=== PATIENT | male | born 1940 | race Caucasian/White ===

== ENCOUNTER 2018-07-27 09:11 | Inpatient (IN) ==
[2018-07-27] MEDS ORDERED: CARDIZEM IV ONE (11:21)
[2018-07-27] MEDS ORDERED: LOVENOX SUBQ ONE (11:25)
[2018-07-27] MEDS ORDERED: ELIQUIS PO SCH ×2 (11:30→21:00)
[2018-07-27] MEDS ORDERED: CARDIZEM 125 MG/D5W 125 MG/125 ML IVPB IV SCH (11:30)
--- NOTE | 2018-07-27 11:46 | CARDIOLOGY CONSULTATION ---
DATE: 07/27/2018 REASON FOR CONSULTATION: Patient is admitted with atrial flutter. HISTORY OF PRESENT ILLNESS: The patient is a 78-year-old gentleman with history of hypertension, bronchitis, abnormal EKG with PACs who was seen in the office recently and he was set up for an outpatient stress test and an echocardiogram. In the stress lab he was noted to be in atrial flutter with rapid ventricular rate of 164. The patient does not perceive any palpitations. Does not complain of chest pain. He has chronic shortness of breath from his COPD, however, he has noticed increasing shortness of breath and these are episodic. There is no history of dizziness. There is no leda syncopal episode. REVIEW OF SYSTEMS: A 14-point review of systems was done. GI: There is no history of nausea, vomiting, diarrhea. There is no history of hematemesis or melena. Central nervous system: No focal weakness to suggest a CVA or TIA. Genitourinary: There is no dysuria or hematuria. PAST MEDICAL HISTORY: 1. COPD, bronchitis. 2. Hypertension. 3. Hyperlipidemia. 4. Shortness of breath. HOME MEDICATIONS: 1. ProAir Respiclick inhalers. 2. Advair Diskus. 3. Spironolactone 25. 4. Ambien 10. 5. Aspirin 81 mg a day. 6. Simvastatin 10. 7. Benazepril 40 mg a day. ALLERGIES: He is not known to be allergic to any medication. PHYSICAL EXAMINATION: Vital Signs: Blood pressure was 130/80. Cardiovascular System: First and second heart sounds were heard. Tachycardia was noted. There was no S3 gallop. Respiratory System: Normal air entry. There are no crepitations or rhonchi. Abdomen: Obese, soft, nontender. There was no guarding or rigidity. Bowel sounds were heard. Central nervous system: Alert and was moving all 4 extremities. Extremities: Examination of extremities revealed no pedal edema. HEENT: Atraumatic, normocephalic. Pupils were equal and reacting to light. ASSESSMENT: Mr. Beck Slaughter is a 78-year-old gentleman with history of hypertension, hyperlipidemia, bronchitis chronic obstructive pulmonary disease who was set up to have a stress test and echocardiogram given his episodic shortness of breath. He was noted to be in atrial flutter with rapid ventricular rate. RECOMMENDATIONS: 1. The patient will be admitted. 2. We will get CBC, BMP, thyroid profile done in addition to chest x-ray. 3. We will set him on Lovenox 1 mg/kg subcutaneous twice daily. 4. We will plan for a JEANE cardioversion. We will start him on a Cardizem drip per standard protocol. 5. Hypertension. Given that we are starting him on Cardizem drip, we will hold off on the benazepril for the moment. 6. We will continue with his aspirin. 7. COPD, bronchitis. Continue with his inhalers. cc: Neil López MD
--- NOTE | 2018-07-27 11:59 | Diag Imaging Result Doc PS360 ---
CHEST-PORTABLE - 07/27/2018 INDICATION: dyspnea COMPARISON: 12/28/2017 FINDINGS: The lungs are normally expanded and clear. Heart size and mediastinal contours are normal. No pneumothorax or pleural effusion. IMPRESSION: Negative exam. Electronically signed by Guillermo Kline 07/27/2018 11:57 AM
--- NOTE | 2018-07-27 12:28 | EKG Report ---
Test Performed on : 07/27/2018 12:12:28 PM Test Reason : afib Blood Pressure : / mmHG Vent. Rate : 163 BPM Atrial Rate : 326 BPM P-R Int : 000 ms QRS Dur : 078 ms QT Int : 252 ms P-R-T Axes : 077 019 007 degrees QTc Int : 414 ms Atrial flutter. with 2:1 AV conduction. T wave abnormality, consider inferior ischemia Abnormal ECG No previous ECGs available Confirmed by Fareed HEARN, Anatoly Powell ([id number]) on 07/31/2018 12:41:17 PM
[2018-07-27] MEDS ORDERED: ZOFRAN IV PRN (12:41)
[2018-07-27] MEDS ORDERED: TYLENOL PO PRN (12:41)
[2018-07-27] MEDS ORDERED: XOPENEX NEB INH PRN (12:41)
[2018-07-27] MEDS ORDERED: ATROVENT NEB INH PRN (12:41)
[2018-07-27 13:16] LABS: HEMATOCRIT 48.4 % (42.0-52.0); HEMOGLOBIN 16.3 g/dL (14.0-18.0); MCHC 33.7 g/dL (33-37); MPV 10.5 FL (7.4-10.4); RBC 5.44 XMIL (4.7-6.1); WBC 10.01 X1000 (4.8-10.8)
[2018-07-27] MEDS ORDERED: NS 1,000 ML ONE (13:21)
[2018-07-27] MEDS ORDERED: ANESTHESIA PB SET 88 IN 5742 ONE (13:21)
[2018-07-27 13:28] LABS: INR 0.88; PROTIME 12.7 Seconds (11.0-16.0)
[2018-07-27 13:32] LABS: HEMOGLOBIN A1C 5.9 % (4.8-6.0)
[2018-07-27] MEDS ORDERED: DIPRIVAN 1% ONE (13:32)
[2018-07-27 13:34] LABS: CALCIUM 9.2 mg/dL (8.8-10.2); CREATININE 1.2 mg/dL (0.7-1.2); MAGNESIUM 1.6 mg/dL (1.5-2.7); POTASSIUM 4.4 mmol/L (3.5-5.1)
[2018-07-27] MEDS ORDERED: XYLOCAINE 2% VISCOUS ONE (13:37)
--- NOTE | 2018-07-27 14:10 | Transesophageal Echocardiogram ---
ORDER DATE: 07/27/2018 INDICATIONS: The patient was admitted with atrial flutter, rapid ventricular rate, which was noted in the stress lab. The patient was brought to the cardiac catheterization laboratory for a JEANE cardioversion. Informed consent was obtained. The patient's oropharynx was anesthetized using Cetacaine spray. The patient was given Versed and propofol. Please see detailed anesthesia records. A transesophageal probe was easily passed into the esophagus and ultrasound pictures were obtained. FINDINGS: 1. Normal left ventricular cavity size. Estimated ejection fraction of 55% to 60%. 2. Left atrium was normal. Left atrial appendage was normal. Right atrium was normal. 3. Aortic valve leaflets were trileaflet. 4. Pulmonic valve was normal. 5. Tricuspid valve was normal. 6. Mitral valve was normal. 7. There is mild mitral regurgitation. 8. There is no aortic stenosis or regurgitation. 9. There is mild tricuspid regurgitation. 10. Pulmonic valve was normal. 11. Layered plaque was noted in the descending aorta. There is no pericardial effusion. There is no obvious intracardiac mass or thrombus seen. CONCLUSIONS: 1. Normal left ventricular cavity size. Ejection fraction of 55% to 60%. 2. There was no obvious intracardiac mass or thrombus noted. 3. There were no complications. 4. Cardioversion was planned, however, patient spontaneously cardioverted to sinus rhythm. Cardioversion was obviously not performed. cc: MD Paula Toro PA MTDD
[2018-07-27 14:24] VITALS: BP 121/80
[2018-07-27] MEDS ORDERED: CARDIZEM CD PO SCH (14:45)
--- NOTE | 2018-07-27 15:03 | EKG Report ---
Test Performed on : 07/27/2018 2:56:13 PM Test Reason : conversion to SR Blood Pressure : / mmHG Vent. Rate : 076 BPM Atrial Rate : 076 BPM P-R Int : 168 ms QRS Dur : 090 ms QT Int : 388 ms P-R-T Axes : 068 043 051 degrees QTc Int : 436 ms Normal sinus rhythm. Normal ECG When compared with ECG of 27-JUL-2018 12:12, (Unconfirmed) Sinus rhythm. has replaced Atrial flutter. Vent. rate has decreased BY 87 BPM T wave inversion no longer evident in Inferior leads Confirmed by Fareed HEARN, Anatoly Powell ([id number]) on 07/31/2018 12:41:18 PM
--- NOTE | 2018-07-27 15:22 | HISTORY AND PHYSICAL ---
PRIMARY CARE PROVIDER: Dr. Mathieu Ornelas PRIMARY STRINGED INSTRUMENT ASSEMBLER: Dr. López REASON FOR DIRECT ADMISSION: Atrial flutter with a rapid ventricular response. HISTORY OF PRESENT ILLNESS: Mr. Beck Slaughter is a 78-year-old male with a medical history of COPD, hypertension, and hyperlipidemia who states that around 3 or 4 weeks ago he went to Dr. Mathieu Ornelas who found him to be in atrial fibrillation. He apparently went and had a followup with Dr. López in the office and was in sinus rhythm at that time and was scheduled for an outpatient stress today. When he went for the stress test he was found to be in atrial flutter with a rate in the 160s. He states that he has been having shortness of breath and fatigue but no chest pain, no palpitations, and no lightheadedness or dizziness. He denies any fluid build up in the legs. He states that he thinks this may have possibly been going on for at least a year because he remembers a couple of different incidences where he had more shortness of breath than usual. Now he is being directly admitted to the CICU for cardioversion by Dr. López through a transesophageal echocardiogram. PAST MEDICAL HISTORY: 1. COPD bronchitis. 2. Hypertension. 3. Hyperlipidemia. 4. Dyspnea. PAST SURGICAL HISTORY: 1. Left testicle removed. 2. Tonsillectomy and adenoidectomy. SOCIAL HISTORY: He quit smoking in 2003 but before that he smoked 2 packs per day for 40+ years. Denies alcohol or illicit drug use. He is retired from [employer] and his personal business of refrigerator repairs. He is . FAMILY HISTORY: Mother had a cerebral aneurysm. Father at 79 from a myocardial infarction. ALLERGIES: No known drug allergies. HOME MEDICATIONS: None listed. We will have that updated or order it to be updated. REVIEW OF SYSTEMS: A 14 point review of systems was completed and all were negative except for those mentioned above in the HPI. PHYSICAL EXAMINATION: VITAL SIGNS: Temperature is 97.6. Pulse rate first was listed as 170 but at the bedside looking at the monitor on his telemetry he was hitting the 90s, still atrial fibrillation/flutter. Respiratory rate was 18. Blood pressure 122/96, O2 saturation 98% on room air. He is 5 foot 11 inches tall and 132 pounds. BMI is 32.5. GENERAL: Mr. Beck Slaughter is a 78-year-old male. He is in no acute distress. He is able to answer questions appropriately. HEENT: Atraumatic, normocephalic. Pupils are equal, round, and reactive to light. Extraocular movements are intact. Mucous membranes are dry. NECK: Trachea is midline. CARDIOVASCULAR: Irregularly irregular tachycardic rate and rhythm. No rubs, gallops, or murmurs. No lower extremity edema; +2 dorsalis and radial pulses. Negative JVD or carotid bruits. PULMONARY: Clear to auscultate bilateral breath sounds. No accessory muscle use or work of breathing noted. Tolerating room air. GI: Soft, nontender, and nondistended. Positive bowel sounds times 4. EXTREMITIES: Moves all extremities equally with full range of motion. NEURO: A O times 3. Follows commands. Sensory is intact. SKIN: Warm, dry, and intact. LABORATORY DATA: None available yet. IMAGING: Chest x-ray: Negative exam. EKG: Atrial flutter with a 2:1 AV conduction. Rate was 163. ASSESSMENT AND PLAN: 1. Apparently he has paroxysmal atrial fibrillation or flutter now with atrial flutter and a rapid ventricular response. He was in this rhythm and outpatient cardiac stress testing so he was directly admitted to the [facility] for a planned transesophageal echocardiogram with cardioversion by Dr. López. He has been made n.p.o. Medication-ferrera he is going to be started on Eliquis. He will be started on a Cardizem drip. He received a 20 mg IV push. He also got a 1 time 100 mg subcutaneous injection of Lovenox given. 2. Chronic obstructive pulmonary disease. No exacerbation. He can have p.r.n. Xopenex and Atrovent if needed. 3. Hypertension. Home medications have not been verified. 4. Hyperlipidemia. 5. Deep vein thrombosis prophylaxis. Again, he is on Eliquis. Dictated by JOSE Aguilera for Seun Epps MD cc: JOSE Aguilera MD
--- NOTE | 2018-07-27 19:58 | HISTORY AND PHYSICAL ---
ADDENDUM REPORT I have seen and examined Mr. Slaughter today on the cardiac floor. He refers to be doing a whole lot better now. He got admitted mainly because of atrial flutter, atrial fibrillation, RVR, and was sent for JEANE with cardioversion. He has spontaneously converted. He is doing a whole lot better now. He is completely asymptomatic at this point. The current EKG shows a normal sinus rhythm. Mr. Slaughter has been seen by Cardiology. He has been started on Cardizem with Ann-Marie and he will be followed up with Dr. López on an outpatient basis. Cardiology recommends to observe him till 5:00, and discharge him when necessary. Please refer to the details of the discharge summary in the chart. Also refer to the details of the history and physical, which has been dictated by the nurse practitioner. cc: Seun Epps MD
--- NOTE | 2018-07-28 19:54 | DISCHARGE SUMMARY ---
ADMISSION DATE: 07/27/2018 DISCHARGE DATE: 07/27/2018 DISPOSITION: Home. FOLLOWUP: Mathieu Ornelas MD CONSULTATIONS: During this admission, Cardiology was consulted. The patient was seen by Dr. López. PROCEDURES: Invasive procedures done during this admission: A JEANE with an attempted electrical cardioversion was done; however, the patient converted before electricity could be applied. DIAGNOSTIC DATA: Imaging studies of significance, a chest x-ray was normal. An echocardiogram showed an ejection fraction of 55% to 60%. DISCHARGE DIAGNOSES: 1. Atrial fibrillation/atrial flutter with rapid ventricular response on presentation. The patient was sent to the catheterization laboratory for transesophageal echocardiogram with cardioversion. Transesophageal echocardiogram was done, but the patient spontaneously converted to sinus before electricity could be applied. 2. History of bronchitis/chronic obstructive pulmonary disease. 3. Hypertension. 4. Dyslipidemia. 5. Intermittent dyspnea, likely due to cardiac arrhythmia. DISCHARGE MEDICATIONS: Diltiazem 180 p.o. daily; Eliquis 5 mg p.o. daily. PRESENTING COMPLAINT: Intermittent shortness of breath and atrial flutter. HISTORY OF PRESENTING COMPLAINT: Mr. Slaughter is a 78-year-old gentleman who had an outpatient evaluation and was found to have an abnormal EKG. The patient was sent for outpatient stress test and echocardiogram. I understand during the stress test he went into atrial flutter with RVR, a rate of 164. This was witnessed by Dr. López. Arrangement was done to have a JEANE with cardioversion. The patient was subsequently sent to the catheterization laboratory. HOSPITAL COURSE: JEANE was done, but the heart spontaneously converted to sinus rhythm with normal rate before electricity could be applied. Mr. Slaughter was subsequently transferred back to [facility], where he would be observed until 5:00 and discharged if he continued to be stable. All the discharge instructions have been discussed with him. He is supposed to follow up with Dr. López for other cardiac evaluation. Time spent for discharge was 32 minutes. cc: MD Mathieu Malcolm MD Ashish K. Basu, MD
--- NOTE | 2018-08-02 16:38 | ECHO REPORT ---
ORDER DATE: 07/27/2018 ELECTROCARDIOGRAPHIC MEASUREMENTS: 1. Aorta 3.7 cm. 2. Left atrium 4.1 cm. SUMMARY: 1. Technically suboptimal study. Very poor acoustic window. Patient was in atrial flutter/fibrillation. 2. Endocardium not well visualized. Optison was used. 3. Aortic valve leaflets trileaflet. 4. Pulmonic valve not well visualized. 5. Mitral valve was normal. 6. Tricuspid valve was normal. 7. There was mild tricuspid regurgitation. Peak velocity across the tricuspid valve less than 2 m/sec. 8. There was left atrial enlargement. 9. There is mild mitral regurgitation. 10. Peak velocity across the aortic valve less than 2 m/sec. There is no aortic stenosis or regurgitation. 11. Optison was used to assess left ventricular systolic function. Normal left ventricular cavity size. Estimated ejection fraction of 65% to 70%. However, tachycardia was noted. This could overestimate the left ventricular systolic function. 12. There is no pericardial effusion or obvious intracardiac mass or thrombus seen. cc: Neil López MD
== END 2018-07-27 18:03 | disposition home or self-care (01) | DRG 310 ==
LOC: ECH 09:11 → EDIPHOLD 11:13 → 3S 11:31
PROVIDERS: ATTEND Internal Medicine
CPT/HCPCS: 71010; 71045; 80048; 80061; 83036; 83721; 83735; 84443; 85027; 85610; 93005; 93010; 93306; 93312; 94761; A9270; C8929; J1650; J7030; Q9957